=== PATIENT | female | born 1995 | race Caucasian/White ===

== ENCOUNTER 2021-06-17 00:50 | Inpatient (IN) | payer OTHER ==
[2021-06-17] MEDS: ELECTROLYTE-148 SOLN 1,000 ML IV SCH (01:30)
[2021-06-17] MEDS ORDERED: AMPICILLIN SODIUM 2 GM VIAL ONE (01:44)
[2021-06-17 01:46] LABS: BASO % 0.2 % (0-2.0); EOS % 0.4 % (0-4.5); HEMATOCRIT 36.5 % (32.4-45.2); HEMOGLOBIN 12.3 GM/dL (10.7-15.3); LYMPH % 15.6 % (8-40); MCH 29.4 pg (25.7-33.7); MCHC 33.8 g/dl (32.0-36.0); MEAN CELL VOLUME 86.8 fl (80-96); MEAN PLT VOLUME 9.8 fl (7.5-11.1); MONO % 4.7 % (3.8-10.2); NEUT % 79.1 % (42.8-82.8); PLATELET COUNT 218 10^3/uL (134-434); RDW 14.1 % (11.6-15.6); WHITE BLOOD COUNT 11.8 K/mm3 (4.0-10.0)
[2021-06-17 02:04] LABS: ACTIVATED PTT 31.3 SECONDS (25.2-36.5); INR 0.94 (0.83-1.09); PROTHROMBIN TIME (PATIENT) 10.8 SEC (9.7-13.0)
[2021-06-17] MEDS ORDERED: AMPICILLIN - 2 GM in SODIUM CHLORIDE 100 ML IVPB ONE (02:06)
[2021-06-17 02:07] LABS: BLOOD UREA NITROGEN 8.6 mg/dL (7-18); CALCIUM 8.6 mg/dL (8.5-10.1)
[2021-06-17 02:11] LABS: CREATININE 0.7 mg/dL (0.55-1.3)
[2021-06-17 02:50] VITALS: BMI 26.3
[2021-06-17 03:09] LABS: HIV INTERPRETATION NEGATIVE (NEGATIVE)
[2021-06-17] MEDS ORDERED: BUTORPHANOL TARTRATE 1 MG/ML VIAL IVPB ONE (04:30)
[2021-06-17] MEDS ORDERED: PROMETHAZINE HCL 25 MG/1 ML VIAL IVPB ONE (04:30)
[2021-06-17] MEDS ORDERED: BUTORPHANOL TARTRATE 2 MG/ML VIAL ONE (04:44)
[2021-06-17] MEDS ORDERED: PROMETHAZINE HCL 25 MG/1 ML VIAL ONE (04:44)
[2021-06-17] MEDS ORDERED: AMPICILLIN SODIUM 1 GM VIAL ONE (05:30)
[2021-06-17] MEDS: AMPICILLIN - 1 GM in SODIUM CHLORIDE 100 ML IVPB SCH ×2 (05:45→21:24)
[2021-06-17] MEDS ORDERED: OXYTOCIN 20 UNITS in 0.9% NS 20 UNIT/1,000 ML INFUS.BAG IV ONE (05:48)
[2021-06-17] MEDS ORDERED: LIDOCAINE HCL 1% PRESERVATIVE FREE - 30ML VIAL ONE (05:48)
[2021-06-17] MEDS ORDERED: BISACODYL 10 MG SUPP.RECT RC PRN (07:18)
[2021-06-17] MEDS ORDERED: WITCH HAZEL 50% (TUCKS) 40 PAD/JAR PAD TP PRN (07:18)
[2021-06-17] MEDS ORDERED: oxyCODONE HCL 5 MG TABLET PO PRN (07:18)
[2021-06-17] MEDS ORDERED: BENZOCAINE 20% 57 GM BOTTLE TP PRN (07:18)
[2021-06-17] MEDS ORDERED: METHYLERGONOVINE MALEATE 0.2 MG/1 ML AMP IM PRN (07:18)
[2021-06-17] MEDS ORDERED: ACETAMINOPHEN 325 MG TABLET (FP) PO PRN (07:18)
[2021-06-17] MEDS ORDERED: BENZOCAINE 28 GM HEMORRHOIDAL OINTMENT TP PRN (07:18)
[2021-06-17] MEDS ORDERED: OXYTOCIN 20 UNITS in 0.9% NS 20 UNITS/1,000 ML INFUS.BAG IV SCH (07:30)
[2021-06-17] MEDS ORDERED: IBUPROFEN 600 MG TABLET (FP) PO ONE (07:37)
[2021-06-17] MEDS: IBUPROFEN 600 MG TABLET (FP) PO PRN (07:40)
[2021-06-17] MEDS: PRENATAL VITAMINS W/ FOLIC ACID TABLET (FP) PO SCH (10:23)
[2021-06-17] MEDS: FERROUS SO4 325 MG TABLET (FP) PO SCH ×3 (10:23→17:56)
[2021-06-18] MEDS: IBUPROFEN 600 MG TABLET (FP) PO PRN ×4 (02:58→22:15)
[2021-06-18] MEDS: ELECTROLYTE-148 SOLN 1,000 ML IV SCH (03:01)
[2021-06-18] MEDS: FERROUS SO4 325 MG TABLET (FP) PO SCH ×3 (08:53→17:58)
[2021-06-18] MEDS: PRENATAL VITAMINS W/ FOLIC ACID TABLET (FP) PO SCH (09:01)
[2021-06-18 09:30] LABS: BASO % 0.2 % (0-2.0); EOS % 1.9 % (0-4.5); HEMATOCRIT 32.8 % (32.4-45.2); LYMPH % 25.5 % (8-40); MCH 29.4 pg (25.7-33.7); MCHC 33.6 g/dl (32.0-36.0); MEAN CELL VOLUME 87.5 fl (80-96); MEAN PLT VOLUME 9.4 fl (7.5-11.1); MONO % 4.8 % (3.8-10.2); NEUT % 67.6 % (42.8-82.8); PLATELET COUNT 230 10^3/uL (134-434); RBC 3.75 M/mm3 (3.60-5.2); RDW 14.3 % (11.6-15.6); WHITE BLOOD COUNT 14.2 K/mm3 (4.0-10.0)
[2021-06-18] MEDS ORDERED: SENNOSIDES/DOCUSATE COMBO (SENNA PLUS) TABLET (UD) PO PRN (22:00)
[2021-06-19] MEDS: PRENATAL VITAMINS W/ FOLIC ACID TABLET (FP) PO SCH (09:40)
[2021-06-19] MEDS: FERROUS SO4 325 MG TABLET (FP) PO SCH (09:40)
[2021-06-19] MEDS: IBUPROFEN 600 MG TABLET (FP) PO PRN (09:40)
[2021-06-19 11:32] VITALS: BP 95/65; PULSE 84; TEMP 98.4
== END 2021-06-19 13:16 | disposition home or self-care (01) | DRG 560 ==
LOC: JLDR 00:50 → J3W 08:30
PROVIDERS: ADMIT Obstetrics & Gynecology; ATTEND Obstetrics & Gynecology
PROC: 10E0XZZ Delivery of Products of Conception, External Approach (ICD-10-PCS; principal; 2021-06-17)
PROC: 0HQ9XZZ Repair Perineum Skin, External Approach (ICD-10-PCS; 2021-06-17)
DX: O99.824 Streptococcus B carrier state complicating childbirth (principal); O70.0 First degree perineal laceration during delivery; Z3A.38 38 weeks gestation of pregnancy; Z37.0 Single live birth
CPT/HCPCS: 36415; 59409; 80048; 85025; 85610; 85730; 86780; 86850; 86900; 86901; 87389; C9803-CS; U0003; U0005